=== PATIENT | female | born 1985 | race Caucasian/White ===

== ENCOUNTER 2018-05-09 00:12 | Outpatient (CLI) | payer SELFPAY | END 2018-05-09 00:13 | disposition critical access hospital (66) | LOC: EMS 00:12 | PROVIDERS: ATTEND Surgery | DX: R40.20 Unspecified coma (principal); R09.89 Other specified symptoms and signs involving the circulatory and respiratory systems; R60.0 Localized edema | CPT/HCPCS: A0425; A0427 ==